=== PATIENT | male | born 1970 | race Caucasian/White ===

== ENCOUNTER 2019-06-24 18:21 | Emergency (ER) | payer OTHER, SELFPAY ==
[2019-06-24 18:23] VITALS: BP 162/109; PULSE 115; RESP 20; TEMP 36.9; O2SAT 99; BMI 26.7
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
[2019-06-24] MEDS: Diphth,Pertuss(Acell),Tet Vac 0.5 ML Vial IM (19:37)
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
[2019-06-24 19:57] VITALS: BP 155/101; PULSE 109; RESP 18; TEMP 35.5
== END 2019-06-24 20:02 | disposition home or self-care (01) ==
LOC: ED 18:53
PROVIDERS: Emergency Provider Emergency Medicine
DX: S81.811A Laceration without foreign body, right lower leg, initial encounter (principal); V23.4XXA Motorcycle driver injured in collision with car, pick-up truck or van in traffic accident, initial encounter; Y93.9 Activity, unspecified; Y92.410 Unspecified street and highway as the place of occurrence of the external cause; Y99.8 Other external cause status; Z72.0 Tobacco use
CPT/HCPCS: 12001; 73590; 90471; 90715; 99285

== ENCOUNTER 2019-07-07 05:53 | Emergency (ER) | payer OTHER, SELFPAY ==
[2019-07-07 05:53] VITALS: BP 136/79; PULSE 81; RESP 17; TEMP 36.6; O2SAT 99; BMI 26.4
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
[2019-07-07] MEDS: Triamcinolone Acetonide 40 MG/ML Vial 80 MG IM (06:09)
[2019-07-07 06:28] VITALS: BP 122/71; PULSE 74; RESP 18; O2SAT 99
== END 2019-07-07 06:29 | disposition home or self-care (01) ==
LOC: ED 06:16
PROVIDERS: Emergency Provider Emergency Medicine
DX: L23.9 Allergic contact dermatitis, unspecified cause (principal); F17.200 Nicotine dependence, unspecified, uncomplicated
CPT/HCPCS: 96372; 99282

== ENCOUNTER → 2023-07-14 | Outpatient (CLI) | payer SELFPAY ==
[2023-07-14 18:18] LABS: Anion Gap 8 (5-15); BUN 10 mg/dL (7-18); BUN/Creat Ratio 12.6 RATIO (10-20); Calcium,Total 8.6 mg/dL (8.5-10.1); Chloride 106 mmol/L (98-107); Cholesterol 225 mg/dL (200); Creatinine, Serum 0.79 mg/dL (0.70-1.30); EST Glomerular Filtration Rate 109 mL/min (>60); Est Glom Filt Rate - Afr Amer 132 mL/min (>60); Glucose 81 mg/dL (74-106); High Density Lipoprotein 71 mg/dL; PSA,Total - Annual Screen 1.56 ng/mL (0.00-4.00); Potassium 3.5 mmol/L (3.5-5.1); Sodium Level 141 mmol/L (136-145); Thyroid Stim Hormone (TSH) 2.12 uIU/mL (0.358-3.74); Triglycerides 47 mg/dL; Very Low Density Lipoprotein 9 mg/dL (5-40)
== END | disposition home or self-care (01) ==
LOC: MFPLAB 15:59
PROVIDERS: PCP Family Medicine; Visit Provider Family Medicine
DX: Z00.00 Encounter for general adult medical examination without abnormal findings (principal)
CPT/HCPCS: 36415; 80048; 80061; 84153; 84403; 84443; G0103

== ENCOUNTER → 2023-08-18 | Outpatient (CLI) | payer BC, SELFPAY ==
--- NOTE | 2023-08-18 15:29 | NEURO ---
NCS and/or EMG Patient Report Ordering Doctor: Fredis Guallpa DATE OF SERVICE: 08/18/23 Ramana presents for electrodiagnostic testing of the left upper limb. He reports numbness in the left fifth digit. Electrodiagnostic findings: Left median motor nerve demonstrates normal distal latency, amplitude and conduction velocity. Left ulnar motor nerve demonstrates normal distal latency and amplitude with an approximately 25% drop in conduction across the elbow. Prolonged left ulnar F-wave is noted. Normal ulnar and radial sensory responses. Borderline prolonged left median sensory latency at the wrist. Normal left median palmar response. On needle EMG, 1+ fibrillations are noted in the left first dorsal interosseous. Electrodiagnostic impression: This is an abnormal study in the left upper limb. 1. Electrodiagnostic findings suggestive of left-sided ulnar neuropathy. This is consistent with a mild left cubital tunnel syndrome. 2. No definitive electrodiagnostic evidence for left-sided median mononeuropathy, including carpal tunnel syndrome. 3. No electrodiagnostic evidence is noted for cervical radiculopathy. Multi Select Codes Neurology Neurology Interp Codes: 93060-53 Musc test done w/n test comp (interp) and 15954-76 Nrv cndj test 7-8 studies (interp)
== END | disposition home or self-care (01) ==
PROVIDERS: PCP Family Medicine; Referring Provider Family Medicine; Visit Provider Family Medicine
DX: R20.2 Paresthesia of skin (principal)
CPT/HCPCS: 95886; 95910

== ENCOUNTER → 2024-05-01 | Outpatient (CLI) | payer BC, SELFPAY ==
[2024-05-01 11:42] LABS: Anion Gap 6 (5-15); BUN 8 mg/dL (7-18); BUN/Creat Ratio 10.1 RATIO (10-20); Chloride 101 mmol/L (98-107); Cholesterol 163 mg/dL (200); EST Glomerular Filtration Rate 108 mL/min (>60); Est Glom Filt Rate - Afr Amer 131 mL/min (>60); Glucose 114 mg/dL (74-106); High Density Lipoprotein 65 mg/dL; Potassium 3.4 mmol/L (3.5-5.1); Sodium Level 134 mmol/L (136-145); Triglycerides 60 mg/dL; Very Low Density Lipoprotein 12 mg/dL (5-40)
== END | disposition home or self-care (01) ==
LOC: MFPLAB 08:11
PROVIDERS: PCP Family Medicine; Visit Provider Family Medicine
DX: I10 Essential (primary) hypertension (principal)
CPT/HCPCS: 36415; 80048; 80061

== ENCOUNTER → 2024-06-14 | Outpatient (CLI) | payer BC, SELFPAY ==
[2024-06-14 13:11] LABS: Anion Gap 6 (5-15); BUN 11 mg/dL (7-18); BUN/Creat Ratio 15.7 RATIO (10-20); Calcium,Total 8.9 mg/dL (8.5-10.1); Chloride 105 mmol/L (98-107); EST Glomerular Filtration Rate 125 mL/min (>60); Est Glom Filt Rate - Afr Amer 151 mL/min (>60); Glucose 109 mg/dL (74-106); PSA,Total - Annual Screen 1.05 ng/mL (0.00-4.00); Potassium 3.7 mmol/L (3.5-5.1); Sodium Level 136 mmol/L (136-145)
== END | disposition home or self-care (01) ==
PROVIDERS: PCP Family Medicine; Referring Provider Family Medicine; Visit Provider Family Medicine
DX: Z00.00 Encounter for general adult medical examination without abnormal findings (principal)
CPT/HCPCS: 36415; 80048; 84153; 84403; G0103

== ENCOUNTER → 2024-11-16 | Outpatient (CLI) | payer BC, SELFPAY ==
--- NOTE | 2024-11-16 18:42 | CT_ITS ---
ACR Level 3 findings have been noted. An addendum which confirms receipt of the report will follow. EXAM: CT MAXILLOFACIAL SINUSES WITHOUT INTRAVENOUS CONTRAST CLINICAL INDICATION: Chronic sinusitis TECHNIQUE: Helically acquired images were obtained of the maxillofacial sinuses without intravenous contrast. This CT exam was performed using one or more of the following dose reduction techniques: automated exposure control, adjustment of the mA and/or kV according to patient size, and/or use of iterative reconstruction technique. COMPARISON: No relevant prior studies available. FINDINGS: NASAL CAVITY/SEPTUM: There is complete opacification of the left side of the nasal cavity secondary to an expansile polypoid mass extending through the choana. There is thinning and remodeling of the pittman of the nasal cavity as well as rightward nasal septal deviation and thickening. MAXILLARY SINUSES: The left maxillary sinus is completely opacified. The left ostiomeatal unit is completely opacified contiguous with the nasal cavity process. There is mild mucosal thickening in the right maxillary sinus with patent right ostiomeatal unit. SPHENOID SINUSES: The left splenic sinus is completely opacified contiguous with the nasal cavity through the opacified sphenoethmoidal recess. The right frontal recess has minimal mucosal thickening. The right sphenoethmoidal recess appears clear. FRONTAL SINUSES: Hypoplastic frontal sinuses. The left is opacified as is the left frontal recess. The right side is clear. ETHMOID AIR CELLS: Remodeling of multiple ethmoid air cells with expansile opacities in the left ethmoid air cells. Mild mucosal thickening in right ethmoid air cells. BONES/JOINTS: There is at least bony thinning if not nuno dehiscence of the ethmoid skull base. (Right TMJ arthrosis. Left sphenoid and right maxillary sinus osteitis. Degenerative changes in the cervical spine. ORBITS: No acute findings. DENTAL: Multiple absent teeth. CT/Sinus/Facial Bone IMPRESSION: Severe sinonasal disease with polyposis. Polypoid disease extends through the left choana into the nasopharynx and there is complete opacification of left maxillary, ethmoid, frontal, and sphenoid sinuses. Apparent thinning and possible dehiscence of the ethmoid skull base on the left. Recommend ENT consultation. Electronically Signed: Porfirio Pagan DO at 17:47 EST ,
== END | disposition home or self-care (01) ==
PROVIDERS: PCP Family Medicine; Referring Provider Family Medicine; Visit Provider Family Medicine
DX: J32.9 Chronic sinusitis, unspecified (principal)
CPT/HCPCS: 70486